=== PATIENT | female | born 1995 | race Caucasian/White ===

== ENCOUNTER 2020-07-06 22:22 | Emergency (ER) | payer OTHER, SELFPAY ==
[2020-07-07 02:33] VITALS: BP 95/67; PULSE 73; RESP 16; TEMP 36.5; O2SAT 100; BMI 22.2
--- NOTE | 2020-07-07 02:36 | XR_ITS ---
EXAMINATION: XR LUMBOSACRAL SPINE CLINICAL INFORMATION: Fall COMPARISON: None TECHNIQUE: Three views of the lumbosacral spine. FINDINGS: There is anatomic alignment of the lumbar vertebral bodies and posterior elements. Vertebral body heights and intervertebral disc spaces are maintained. No acute fracture is seen. Sacroiliac joints appear intact. XR/XR lumbar spine 2-3V IMPRESSION: No acute findings identified.
--- NOTE | 2020-07-07 02:37 | ED.FALL ---
HPI - Fall General Chief Complaint: Back Pain/Injury Stated Complaint: Bilateral Hip pain Time Seen by Provider: 07/07/20 02:30 Source: patient Mode of arrival: ambulatory Limitations: no limitations History of Present Illness HPI Narrative: fell while skiing this unsure of what happened, noted she landed hands first but her area of pain is low back radiating down to both hips can ambulate but pain has worsened, no b/b incontinence, no saddle anesthesia tried excedrin without relief complaint: fall Onset (ago): day(s) (2) Fall from: other (skiing) Fall witnessed: no Place fall occurred: other (slopes) Loss of consciousness: none Prolonged down time: no Symptoms prior to fall: none Context: tripped/slipped Location of injury: back and pelvis Related Data Previous Rx's Medication Instructions Recorded cyclobenzaprine 10 mg PO TID PRN #14 tab 07/07/20 ibuprofen 600 mg PO Q6H PRN #30 tab 07/07/20 lidocaine 1 patch TOPICAL DAILY PRN #10 ea 07/07/20 prednisone 40 mg PO DAILY 5 Days #10 tab 07/07/20 Allergies Allergy/AdvReac Type Severity Reaction Status Date / Time escitalopram [From LEXAPRO] AdvReac Unknown AGITATION Unverified 03/01/20 19:52 sertraline [From ZOLOFT] AdvReac Unknown MORE Unverified 03/01/20 19:52 SUICIDAL Review of Systems Review of Systems: Constitutional : No Fever, No Chills ENT/Mouth : No Ear Pain, No Hoarseness, No sore throat Eyes: No Eye Pain, No Swelling, No Redness, No Foreign Body Cardiovascular : No Chest Pain, No SOB Respiratory : No Cough, No Dyspnea Gastrointestinal : No Nausea, No Vomiting, No Diarrhea, No abdominal Pain Genitourinary : No Dysuria, No Hematuria Musculoskeletal : positive joint pain, No Myalgias, No Joint Swelling Skin : No Skin lacerations, No rash Neuro : No Weakness, No Numbness, No Loss of Consciousness, No Dizziness, No Headache Psych : No Anxiety/Panic, No Depression Heme/Lymph: no easy bruising, no Lymphadenopathy Endocrine : No Polyuria, No Polydipsia All other systems reviewed and are negative [facility] Past Medical History Attestation statement: The following information was validated with the patient. Medical History (Updated 07/07/20 @ 03:28 by Rosalee Sky DO) Anxiety Depression Hypothyroidism No active medical problems Social History Social History (Updated 07/07/20 @ 02:41 by Rosalee Sky DO) Alcohol intake: current Alcohol intake frequency: a few times a month Alcohol type: beer and hard liquor Smoking Status: Current every day smoker Smoked in Last 30 Days: Yes Use of substances other than those prescribed or required for medical reasons: No Substance Use Type: Marijuana Advance Directives: No Advance Directives Information Provided: No Physical Exam Vital Signs: Vital Signs: Last Vital Signs Temp 97.7 F 07/07/20 02:52 Pulse 73 07/07/20 02:52 Resp 16 07/07/20 02:52 BP 95/67 07/07/20 02:52 Pulse Ox 100 07/07/20 02:52 Body Mass Index 22.2 Appearance: Alert. Oriented X3. No acute distress. Eyes: Pupils equal, round and reactive to light. ENT: Pharynx normal. Neck: Normal inspection. Neck supple. CVS: Normal heart rate and rhythm. Pulses normal. Respiratory: No respiratory distress. Breath sounds normal. Abdomen: Soft and nontender. Back: no midline ttp, pain along lower paraspinals Skin: Skin warm and dry. Normal skin color. Normal skin turgor. Extremities: No lower extremity edema. No calf ttp pain in both hips with range of motion, radiates into hamstrings distal NV intact Neuro: Oriented X 3. No motor deficit. No sensory deficit. MDM - Fall MDM Narrative Medical decision making narrative: 24 yo female with likely MSK strain post skiing fall - NV intact but c/o low back pain and bilateral hip pain - will need xrays of pelvis and lumbar spine, no b/b incontinence, no saddle anesthesia, will give IM Toradol dose Discharge Plan Discharge Clinical Impression: Strain of lumbar region Qualifiers: Encounter type: initial encounter Qualified Code(s): S39.012A - Strain of muscle, fascia and tendon of lower back, initial encounter Hip strain Qualifiers: Encounter type: initial encounter Laterality: unspecified laterality Qualified Code(s): S76.019A - Strain of muscle, fascia and tendon of unspecified hip, initial encounter Patient Disposition: Home, Self-Care Instructions: Low Back Strain (ED), Hip Sprain (ED) Additional Instructions: return to ED for any worsening symptoms or concerns Prescriptions: New cyclobenzaprine 10 mg tablet 10 mg PO TID PRN (Reason: muscle spasm) Qty: 14 RF: 0 lidocaine 4 % adhesive patch,medicated 1 patch topical DAILY PRN (Reason: pain) Qty: 10 RF: 0 ibuprofen 600 mg tablet 600 mg PO Q6H PRN (Reason: pain) Qty: 30 RF: 0 prednisone 20 mg tablet 40 mg PO DAILY 5 Days Qty: 10 RF: 0 Referrals: Physician,Unknown [Primary Care Provider] - 3 days (if not better) Stand Alone Forms: Work/School Release
--- NOTE | 2020-07-07 02:42 | XR_ITS ---
EXAMINATION: XR PELVIS CLINICAL INFORMATION: Fall COMPARISON: None TECHNIQUE: AP view of the pelvis. FINDINGS: Alignment across the hips appears anatomic. No acute fracture is seen. Sacroiliac joints and pubic symphysis are intact. XR/XR pelvis 1-2V IMPRESSION: No acute findings.
[2020-07-07 02:52] VITALS: BP 95/67; PULSE 73; RESP 16; TEMP 36.5; O2SAT 100
[2020-07-07] MEDS: Ketorolac Tromethamine 60 MG/2 ML VIAL IM (03:03)
== END 2020-07-07 04:21 | disposition home or self-care (01) ==
PROVIDERS: Emergency Provider Emergency Medicine
DX: S39.012A Strain of muscle, fascia and tendon of lower back, initial encounter (principal); S76.019A Strain of muscle, fascia and tendon of unspecified hip, initial encounter; M25.552 Pain in left hip; M25.551 Pain in right hip; F17.200 Nicotine dependence, unspecified, uncomplicated; W00.0XXA Fall on same level due to ice and snow, initial encounter; Y93.23 Activity, snow (alpine) (downhill) skiing, snowboarding, sledding, tobogganing and snow tubing; Y92.89 Other specified places as the place of occurrence of the external cause; Y99.8 Other external cause status; Z71.6 Tobacco abuse counseling; Z79.899 Other long term (current) drug therapy
CPT/HCPCS: 72100; 72170; 96372; 99284; J1885